=== PATIENT | female | born 1970 | race Caucasian/White ===

== ENCOUNTER → 2018-02-17 | Day surgery (SDC) | payer OTHER ==
[2018-02-16 12:17] LABS: BASOPHILS % 0.7 % (0.0-1.0); EOSINOPHILS # (AUTO) 0.1 (0.0-0.4); EOSINOPHILS % 1.3 % (0.0-6.0); HEMATOCRIT 41.7 % (34.2-44.1); HEMOGLOBIN 14.4 g/dL (12.0-16.0); LYMPHOCYTES # (AUTO) 1.4 (1.0-3.2); LYMPHOCYTES % 25.6 % (18.0-39.1); MEAN CORPUSCULAR HEMOGLOBIN 33.9 pg (28-32); MEAN CORPUSCULAR HGB CONC 34.5 g/dL (31-35); MEAN CORPUSCULAR VOLUME 98.1 fL (81-99); MONOCYTES # (AUTO) 0.5 (0.2-0.8); MONOCYTES % 9.5 % (4.4-11.3); NEUTROPHILS # (AUTO) 3.5 (2.1-6.9); NEUTROPHILS % 62.5 % (38.7-80.0); PLATELET COUNT 207 x10e3/uL (140-360); RED BLOOD COUNT 4.25 x10e6/uL (3.6-5.1); RED CELL DISTRIBUTION WIDTH 13.5 % (11.7-14.4)
[~2018-02-17] MED LIST: ALLERGY RELIEF4 MG PO; BUPIVACAINE HCL 0.5% INJ 30 ML VIAL INJ ONE; CEFAZOLIN SOD 1 GM VIAL ONE; CENTRUM COMPLE1 EACH PO; CRANBERRY400 MG PO; DEXAMETHASONE SOD PHOS INJ 4 MG/ML VIAL ONE; DOXYCYCLINE HY100 MG PO; EPHEDRINE SULFATE INJ 50 MG/10 ML SYR ONE; FENTANYL CITRATE/PF 100MCG/2 ML INJ ONE; KETOROLAC TROMETHAMINE 30 MG/ML VIAL ONE; NEXIUM40 MG PO; ONDANSETRON HCL INJ 2 MG/ML VIAL ONE; PROPOFOL IV EMULSION 10 MG/ML 20 ML VIAL ONE; SEVOFLURANE INHAL SOLN 250 ML PEN BTL ONE
--- NOTE | 2018-02-17 14:43 | Operative Report ---
DATE OF PROCEDURE: February 17, 2018 PREOPERATIVE DIAGNOSIS: Soft tissue mass left hip. POSTOPERATIVE DIAGNOSIS: Soft tissue mass left hip. PROCEDURE: Excision of soft tissue mass left hip with layered closure 8 cm. TOOL/DIE MAKER: None. ANESTHESIA: General. INDICATIONS AND FINDINGS: Patient a 47-year-old female, presented with complaints of mass in her left hip that has increased in size. At surgery there was a multilobulated well-circumscribed fatty tumor in the left lateral hip area which started close to the skin extending to subcutaneous tissue down to the fascia. Did not extend through the fascia. TECHNIQUE: After adequate general anesthesia, patient in supine position with left hip elevated. Left hip area was prepped and draped in sterile fashion with Lion solution. Transversus incision made over the area of the mass, carried down through skin and subcutaneous tissue. The mass was seen to extend up to just beneath the skin. The mass was a multilobulated fatty tumor and completely excised from surrounding tissues. It was about 8 cm in diameter. Hemostasis achieved with electrocautery. The mass was found to extend from just below the skin all the way to the fascia but did not go through the fascia. The wound was irrigated with saline, inspected for hemostasis which was seen to be adequate. The wound was then infiltrated 1/2 percent Marcaine. It was then closed in layers with 3-0 Vicryl subcutaneous tissue and 4-0 Vicryl subcuticular to the skin. Dermabond with sterile dressing were applied. Patient tolerated procedure well. Estimated blood loss was 10 mL. There were no complications. All counts were correct. Patient was taken to the recovery room in satisfactory condition. Job#: [id number] OLIVIER cc:CHI ARIAS MD
== END | disposition home or self-care (01) ==
LOC: OR 11:54
PROVIDERS: ATTEND Surgery
DX: D17.24 Benign lipomatous neoplasm of skin and subcutaneous tissue of left leg (principal); K21.9 Gastro-esophageal reflux disease without esophagitis; Z01.812 Encounter for preprocedural laboratory examination; Z87.891 Personal history of nicotine dependence
CPT/HCPCS: 27043; 36415; 81025; 85025; 88304; J0690; J1100; J1885; J2405

== ENCOUNTER 2023-01-10 09:54 | Emergency (ER) | payer BC, OTHER ==
[~2023-01-10] VITALS: Ht 167.6 cm; Wt 54.4 kg
[~2023-01-10 09:54] MED LIST changes: -BUPIVACAINE HCL 0.5% INJ 30 ML VIAL INJ ONE; -CEFAZOLIN SOD 1 GM VIAL ONE; -DEXAMETHASONE SOD PHOS INJ 4 MG/ML VIAL ONE; -EPHEDRINE SULFATE INJ 50 MG/10 ML SYR ONE; -FENTANYL CITRATE/PF 100MCG/2 ML INJ ONE; -KETOROLAC TROMETHAMINE 30 MG/ML VIAL ONE; -ONDANSETRON HCL INJ 2 MG/ML VIAL ONE; -PROPOFOL IV EMULSION 10 MG/ML 20 ML VIAL ONE; -SEVOFLURANE INHAL SOLN 250 ML PEN BTL ONE
[2023-01-10] MEDS ORDERED: LIDOCAINE 2% /EPINEPHRINE 20 ML SDV INJ ONE (10:15)
[2023-01-10] MEDS ORDERED: LIDOCAINE 1% W/EPINEPHRINE 20 ML VIAL ONE (10:29)
[2023-01-10] MEDS ORDERED: TETANUS/DIPHTHERIA TOX ADULT 0.5 ML SYR IM ONE (11:15)
[2023-01-10] MEDS ORDERED: NEOMYCIN/POLYMYX/BACITR OINT 0.9 GM PKT TOP ONE (11:15)
== END 2023-01-10 11:31 | disposition home or self-care (01) ==
LOC: ER 09:57
DX: S01.112A Laceration without foreign body of left eyelid and periocular area, initial encounter (principal); W01.198A Fall on same level from slipping, tripping and stumbling with subsequent striking against other object, initial encounter; Y93.01 Activity, walking, marching and hiking; Y92.89 Other specified places as the place of occurrence of the external cause; I10 Essential (primary) hypertension; F32.A Depression, unspecified
CPT/HCPCS: 90471; 90714; 99284